=== PATIENT | female | born 1985 | race Caucasian/White ===

== ENCOUNTER 2019-11-25 09:16 | Emergency (ER) | payer SELFPAY ==
[~2019-11-25] VITALS: Ht 170.2 cm; Wt 56.0 kg
[2019-11-25 10:20] LABS: HEMATOCRIT. 41.6 % (36.0-48.0); HEMOGLOBIN. 14.5 g/dL (12.0-16.0); MEAN PLATELET VOLUME 11.2 fl (7.4-10.4); PLATELET 113 x1000/uL (130-400); RED BLOOD CELL COUNT 3.82 mill/uL (4.2-5.4); RED CELL DISTRIBUTION WIDTH 13.5 % (11.6-14.6)
[2019-11-25] MEDS ORDERED: CHLORDIAZEPOXIDE 25MG CAPSULE PO ONE (10:30)
[2019-11-25] MEDS ORDERED: LORAZEPAM 2MG/ML CPJ IV ONE (10:30)
[2019-11-25 10:37] VITALS: BP 143/101
[2019-11-25 11:09] LABS: PLATELET ESTIMATE SLIGHTLY DECREASED
== END 2019-11-25 11:30 | disposition left against medical advice (07) ==
LOC: ER 09:48 → CANBEDREQ 20:47
DX: G40.909 Epilepsy, unspecified, not intractable, without status epilepticus (principal); F10.239 Alcohol dependence with withdrawal, unspecified; Y90.9 Presence of alcohol in blood, level not specified; R00.0 Tachycardia, unspecified; D75.89 Other specified diseases of blood and blood-forming organs
CPT/HCPCS: 36415; 85025; 93005; 99284; J2060